=== PATIENT | female | born 1995 | race Caucasian/White ===

== ENCOUNTER 2016-05-03 09:00 | Emergency (ER) | payer BC, OTHER ==
[2016-05-03 09:43] VITALS: RESP 16; TEMP 98
[2016-05-03] MEDS ORDERED: KETOROLAC TROMETHAMINE 30 MG/ML SOL IM ONE (09:55)
[2016-05-03] MEDS ORDERED: METOCLOPRAMIDE HCL 5 MG/ML 10 MG in SODIUM CHLORIDE 0.9% 50 ML 50 ML IV ONE (09:56)
[2016-05-03] MEDS ORDERED: SODIUM CHLORIDE 0.9% 1000ML 1,000 ML IV SCH (10:00)
[2016-05-03] MEDS ORDERED: METOCLOPRAMIDE HYDROCHLORIDE 5 MG/ML SOL IV ONE (10:05)
[2016-05-03] MEDS ORDERED: KETOROLAC TROMETHAMINE 30 MG/ML SOL IV ONE (10:06)
[2016-05-03] MEDS ORDERED: KETOROLAC TROMETHAMINE 30 MG/ML SOL ONE (10:09)
[2016-05-03] MEDS ORDERED: METOCLOPRAMIDE HYDROCHLORIDE 5 MG/ML SOL ONE (10:09)
[2016-05-03] MEDS ORDERED: LORAZEPAM 2 MG/ML SOL IV ONE (10:39)
[2016-05-03] MEDS ORDERED: LORAZEPAM 2 MG/ML SOL ONE (10:40)
[2016-05-03 14:05] VITALS: O2SAT 100
[2016-05-03 14:06] VITALS: BP 83/48; PULSE 96
== END 2016-05-03 11:45 | disposition home or self-care (01) ==
LOC: ED 09:00
DX: G43.909 Migraine, unspecified, not intractable, without status migrainosus (principal)
CPT/HCPCS: 99285 ×2; J1885; J2060; J2765; 96365; 96374; 96375; 99284